=== PATIENT | female | born 1960 | race Caucasian/White ===

== ENCOUNTER 2023-11-15 10:38 | Outpatient (CLI) | payer MEDICARE, OTHER | END 2023-11-15 10:39 | disposition home or self-care (01) | LOC: SCSMRI 10:38 | PROVIDERS: ATTEND Podiatrist Foot & Ankle Surgery | DX: S93.522A Sprain of metatarsophalangeal joint of left great toe, initial encounter (principal); S90.112A Contusion of left great toe without damage to nail, initial encounter ==